=== PATIENT | male | born 1975 | race Hispanic/Latino ===

== ENCOUNTER 2020-05-18 09:00 | Emergency (ER) | payer OTHER ==
[~2020-05-18] VITALS: Ht 167.6 cm; Wt 66.0 kg
[2020-05-18] MEDS ORDERED: NAPROSYN500 MG PO (12:14)
== END 2020-05-18 12:24 | disposition home or self-care (01) ==
LOC: FSED 09:08
DX: R10.11 Right upper quadrant pain (principal); K82.4 Cholesterolosis of gallbladder
CPT/HCPCS: 76705; 80053; 80076; 85025; 99283